=== PATIENT | female | born 1930 | race Caucasian/White ===

== ENCOUNTER → 2016-10-22 | Outpatient (CLI) | payer MEDICARE, OTHER ==
[2014-05-02 10:23] VITALS: BP 156/66
[~2016-10-22] MED LIST: CARDI-OMEGA1000 MG PO; CENTRUM SILVER1 TA1 PO; CHILDREN'S ASPI81 M1 PO; GLIPIZIDE5 MG PO; LISINOPRIL10 MG PO; LOVASTATIN20 MG PO; MELOXICAM7.5 MG PO; METFORMIN500 MG PO; NATURE'S BLEND400 I1 PO; PAIN RELIEVER500 M2 PO
== END ==
LOC: LAB 09:01
DX: Z00.00 Encounter for general adult medical examination without abnormal findings (principal); M25.511 Pain in right shoulder; E11.9 Type 2 diabetes mellitus without complications; I10 Essential (primary) hypertension; Z23 Encounter for immunization; R41.3 Other amnesia; M16.11 Unilateral primary osteoarthritis, right hip; K21.9 Gastro-esophageal reflux disease without esophagitis; E78.00 Pure hypercholesterolemia, unspecified

== ENCOUNTER → 2017-01-28 | Outpatient (CLI) | payer MEDICARE, OTHER ==
[2014-05-02 10:23] VITALS: BP 156/66
== END ==
LOC: LAB 10:54
DX: E11.9 Type 2 diabetes mellitus without complications (principal); E78.00 Pure hypercholesterolemia, unspecified; M79.659 Pain in unspecified thigh

== ENCOUNTER 2017-02-28 12:37 | Outpatient (RCR) | payer MEDICARE, OTHER ==
[2014-05-02 10:23] VITALS: BP 156/66
== END 2017-02-28 13:30 | disposition home or self-care (01) ==
LOC: PT 12:37
DX: M79.651 Pain in right thigh (principal)

== ENCOUNTER → 2017-04-21 | Outpatient (CLI) | payer MEDICARE, OTHER ==
[2014-05-02 10:23] VITALS: BP 156/66
== END ==
LOC: LAB 14:41
DX: E11.9 Type 2 diabetes mellitus without complications (principal); M25.511 Pain in right shoulder; I10 Essential (primary) hypertension

== ENCOUNTER → 2017-05-02 | Outpatient (CLI) | payer MEDICARE, OTHER ==
[2014-05-02 10:23] VITALS: BP 156/66
== END ==
LOC: RAD 11:58
DX: M51.84 Other intervertebral disc disorders, thoracic region (principal); M47.816 Spondylosis without myelopathy or radiculopathy, lumbar region

== ENCOUNTER → 2017-10-07 | Outpatient (CLI) | payer MEDICARE, OTHER ==
[2014-05-02 10:23] VITALS: BP 156/66
[2017-10-07 10:15] LABS: ALBUMIN 3.7 g/dL (3.5-5.0); BUN/CREATININE RATIO 8.1 (6.0-26.0); CALCIUM 9.8 mg/dL (8.4-10.2); POTASSIUM 4.1 mmol/L (3.6-5.0); TOTAL BILIRUBIN 0.5 mg/dL (0.2-1.3); TOTAL PROTEIN 6.9 g/dL (6.3-8.2)
== END ==
LOC: LAB 09:13
PROVIDERS: Family Medicine
DX: E11.9 Type 2 diabetes mellitus without complications (principal); E78.00 Pure hypercholesterolemia, unspecified

== ENCOUNTER → 2018-01-16 | Outpatient (CLI) | payer MEDICARE, OTHER ==
[2014-05-02 10:23] VITALS: BP 156/66
== END ==
LOC: LAB 11:59
DX: E11.9 Type 2 diabetes mellitus without complications (principal)

== ENCOUNTER → 2018-07-08 | Outpatient (CLI) | payer MEDICARE, OTHER ==
[2014-05-02 10:23] VITALS: BP 156/66
== END ==
LOC: LAB 09:58
DX: E11.9 Type 2 diabetes mellitus without complications (principal)

== ENCOUNTER 2018-11-30 14:00 | Outpatient (RCR) | payer MEDICARE, OTHER ==
[2014-05-02 10:23] VITALS: BP 156/66
== END 2018-11-30 14:30 | disposition still patient (30) ==
LOC: PT 14:00
DX: M47.16 Other spondylosis with myelopathy, lumbar region (principal); M16.11 Unilateral primary osteoarthritis, right hip

== ENCOUNTER 2019-01-08 10:12 | Emergency (ER) | payer MEDICARE, OTHER ==
[2019-01-08 11:06] LABS: EOS # 0.2 (0.04-0.40); HEMATOCRIT 31.7 % (37.0-47.0); HEMOGLOBIN 9.3 g/dL (12.5-16.0); LYMPH# 1.2 (1.50-4.00); MEAN CELL VOLUME 83 fl (78-100); MEAN CORPUSCULAR HEMOGLOBIN 24 pg (27-31); MEAN CORPUSCULAR HGB CONC 29 g/dL (33-37); MEAN PLATELET VOLUME 10.6 fl (7.4-10.4); MONO # 0.6 (0.20-0.80); NEU # 5.6 (1.40-6.50); PLATELET COUNT 299 K/mm3 (130-400); RED BLOOD COUNT 3.81 M/mm3 (4.10-5.30); RED CELL DISTRIBUTION WIDTH 15.9 % (11.5-14.5); WHITE BLOOD COUNT 7.6 K/mm3 (4.8-10.8)
[2019-01-08 11:12] LABS: ALBUMIN 3.6 g/dL (3.4-4.8); POTASSIUM 4.1 mmol/L (3.5-5.1)
[2019-01-08 11:14] LABS: CALCIUM 9.2 mg/dL (8.3-10.5)
[2019-01-08 11:15] LABS: TOTAL PROTEIN 6.2 g/dL (6.2-8.1)
[2019-01-08 11:17] LABS: PROTHROMBIN TIME 9.6 SECONDS (9.0-12.0); TOTAL BILIRUBIN 0.4 mg/dL (0.2-1.2)
[2019-01-08 11:19] LABS: D-DIMER 1.22 mg/L FEU (0.15-0.50)
[2019-01-08 11:27] LABS: TROPONIN-I 0.06 ng/mL (<0.030)
[2019-01-08 14:12] VITALS: BP 162/58
== END 2019-01-08 13:40 | disposition short-term general hospital (02) ==
LOC: ED 10:12
PROVIDERS: Nurse Practitioner Primary Care
DX: I21.4 Non-ST elevation (NSTEMI) myocardial infarction (principal); I50.9 Heart failure, unspecified; R91.8 Other nonspecific abnormal finding of lung field; E11.9 Type 2 diabetes mellitus without complications; I11.0 Hypertensive heart disease with heart failure; E78.5 Hyperlipidemia, unspecified; Z79.82 Long term (current) use of aspirin; Z79.84 Long term (current) use of oral hypoglycemic drugs
CPT/HCPCS: J1940; Q9967

== ENCOUNTER → 2019-01-24 | Outpatient (CLI) | payer MEDICARE, OTHER ==
[2019-01-08 14:12] VITALS: BP 162/58
[2019-01-24 10:53] LABS: POTASSIUM 4.5 mmol/L (3.5-5.1)
[2019-01-24 10:54] LABS: CALCIUM 9.8 mg/dL (8.3-10.5)
== END ==
LOC: LAB 10:31
PROVIDERS: Family Medicine
DX: I10 Essential (primary) hypertension (principal); E11.9 Type 2 diabetes mellitus without complications; I25.10 Atherosclerotic heart disease of native coronary artery without angina pectoris; E78.00 Pure hypercholesterolemia, unspecified

== ENCOUNTER → 2019-02-07 | Outpatient (CLI) | payer MEDICARE, OTHER ==
[2019-01-08 14:12] VITALS: BP 162/58
[2019-02-07 15:56] LABS: POTASSIUM 4.7 mmol/L (3.5-5.1)
[2019-02-07 15:57] LABS: CALCIUM 9.7 mg/dL (8.3-10.5)
== END ==
LOC: LAB 15:27
PROVIDERS: Family Medicine
DX: E11.9 Type 2 diabetes mellitus without complications (principal); I12.9 Hypertensive chronic kidney disease with stage 1 through stage 4 chronic kidney disease, or unspecified chronic kidney disease; I25.10 Atherosclerotic heart disease of native coronary artery without angina pectoris; R91.8 Other nonspecific abnormal finding of lung field

== ENCOUNTER → 2019-02-23 | Outpatient (CLI) | payer MEDICARE, OTHER ==
[2019-02-23 13:29] LABS: HEMOGLOBIN 10.8 g/dL (12.5-16.0); MEAN PLATELET VOLUME 9.7 fl (7.4-10.4); RED BLOOD COUNT 4.34 M/mm3 (4.10-5.30); RED CELL DISTRIBUTION WIDTH 17.9 % (11.5-14.5); WHITE BLOOD COUNT 9.8 K/mm3 (4.8-10.8)
== END ==
LOC: LAB 13:17
PROVIDERS: Family Medicine
DX: I25.10 Atherosclerotic heart disease of native coronary artery without angina pectoris (principal)

== ENCOUNTER → 2019-04-19 | Outpatient (CLI) | payer MEDICARE, OTHER | LOC: LAB 08:43 | DX: Z23 Encounter for immunization (principal); E11.9 Type 2 diabetes mellitus without complications; I10 Essential (primary) hypertension; R41.3 Other amnesia; I25.10 Atherosclerotic heart disease of native coronary artery without angina pectoris ==

== ENCOUNTER → 2019-05-24 | Outpatient (CLI) | payer MEDICARE, OTHER | LOC: RAD 11:33 | DX: M16.0 Bilateral primary osteoarthritis of hip (principal) ==

== ENCOUNTER → 2019-08-15 | Outpatient (CLI) | payer MEDICARE, OTHER | LOC: LAB 12:01 | DX: E11.9 Type 2 diabetes mellitus without complications (principal) ==

== ENCOUNTER 2019-09-03 14:30 | Outpatient (RCR) | payer MEDICARE, OTHER | END 2019-09-04 | LOC: PT | DX: M16.11 Unilateral primary osteoarthritis, right hip (principal); M79.604 Pain in right leg ==

== ENCOUNTER 2019-09-18 14:00 | Outpatient (RCR) | payer MEDICARE, OTHER | END 2019-09-18 14:30 | disposition still patient (30) | LOC: PT 14:00 | DX: M16.11 Unilateral primary osteoarthritis, right hip (principal) ==

== ENCOUNTER → 2019-11-08 | Outpatient (CLI) | payer MEDICARE, OTHER | LOC: LAB 14:04 | DX: E11.9 Type 2 diabetes mellitus without complications (principal) ==

== ENCOUNTER → 2021-02-25 | Outpatient (CLI) | payer MEDICARE, OTHER ==
[2021-02-25 11:42] LABS: HEMATOCRIT 43.4 % (37.0-47.0); HEMOGLOBIN 13.7 g/dL (12.5-16.0); MEAN PLATELET VOLUME 10.3 fl (7.4-10.4); RED BLOOD COUNT 4.8 M/mm3 (4.10-5.30); RED CELL DISTRIBUTION WIDTH 12.3 % (11.5-14.5); WHITE BLOOD COUNT 8.7 K/mm3 (4.8-10.8)
[2021-02-25 11:45] LABS: POTASSIUM 3.8 mmol/L (3.5-5.1)
[2021-02-25 11:46] LABS: ALBUMIN 4.1 g/dL (3.4-4.8)
[2021-02-25 11:47] LABS: CALCIUM 10.2 mg/dL (8.3-10.5)
[2021-02-25 11:48] LABS: TOTAL PROTEIN 7.6 g/dL (6.2-8.1)
[2021-02-25 11:50] LABS: TOTAL BILIRUBIN 0.6 mg/dL (0.2-1.2)
== END ==
LOC: LAB 10:52
PROVIDERS: Family Medicine
DX: E11.9 Type 2 diabetes mellitus without complications (principal); E78.00 Pure hypercholesterolemia, unspecified; I10 Essential (primary) hypertension

== ENCOUNTER → 2021-03-16 | Outpatient (CLI) | payer MEDICARE, OTHER ==
[2021-03-16 15:06] LABS: POTASSIUM 4.2 mmol/L (3.5-5.1)
== END ==
LOC: LAB 14:39
PROVIDERS: Family Medicine
DX: E11.9 Type 2 diabetes mellitus without complications (principal)

== ENCOUNTER → 2021-06-22 | Outpatient (CLI) | payer MEDICARE, OTHER ==
[2021-06-22 09:34] LABS: POTASSIUM 4.2 mmol/L (3.5-5.1)
[2021-06-22 09:35] LABS: CALCIUM 10.2 mg/dL (8.3-10.5)
== END ==
LOC: LAB 09:08
PROVIDERS: Family Medicine
DX: E11.9 Type 2 diabetes mellitus without complications (principal); I10 Essential (primary) hypertension; E78.00 Pure hypercholesterolemia, unspecified

== ENCOUNTER → 2021-09-09 | Outpatient (CLI) | payer MEDICARE, OTHER ==
[2021-09-09 13:20] LABS: POTASSIUM 4.4 mmol/L (3.5-5.1)
[2021-09-09 13:21] LABS: CALCIUM 9.3 mg/dL (8.3-10.5)
== END ==
LOC: LAB 12:07
PROVIDERS: Family Medicine
DX: I12.9 Hypertensive chronic kidney disease with stage 1 through stage 4 chronic kidney disease, or unspecified chronic kidney disease (principal); E11.22 Type 2 diabetes mellitus with diabetic chronic kidney disease; N18.4 Chronic kidney disease, stage 4 (severe)

== ENCOUNTER → 2021-10-23 | Outpatient (CLI) | payer MEDICARE, OTHER | LOC: LAB 11:23 | DX: R00.1 Bradycardia, unspecified (principal) ==

== ENCOUNTER 2022-01-02 15:54 | Emergency (ER) | payer MEDICARE, OTHER ==
[2022-01-02 17:02] LABS: HEMATOCRIT 36.5 % (37.0-47.0); HEMOGLOBIN 12.1 g/dL (12.5-16.0); MEAN CELL VOLUME 91 fl (78-100); MEAN CORPUSCULAR HEMOGLOBIN 30 pg (27-31); MEAN CORPUSCULAR HGB CONC 33 g/dL (33-37); MEAN PLATELET VOLUME 10.5 fl (7.4-10.4); PLATELET COUNT 172 K/mm3 (130-400); RED BLOOD COUNT 4.01 M/mm3 (4.10-5.30); RED CELL DISTRIBUTION WIDTH 13.1 % (11.5-14.5); WHITE BLOOD COUNT 5.5 K/mm3 (4.8-10.8)
[2022-01-02 17:06] LABS: ALBUMIN 3.7 g/dL (3.4-4.8)
[2022-01-02 17:07] LABS: POTASSIUM 4.2 mmol/L (3.5-5.1)
[2022-01-02 17:08] LABS: CALCIUM 9.2 mg/dL (8.3-10.5)
[2022-01-02 17:09] LABS: TOTAL PROTEIN 6.6 g/dL (6.2-8.1)
[2022-01-02 17:11] LABS: TOTAL BILIRUBIN 0.8 mg/dL (0.2-1.2)
[2022-01-02 17:20] LABS: URINE APPEARANCE CLOUDY; URINE BILIRUBIN NEGATIVE (NEGATIVE); URINE BLOOD TRACE (NEGATIVE); URINE COLOR YELLOW; URINE KETONE 1+ (NEGATIVE); URINE LEUKOCYTE ESTERASE TRACE (NEGATIVE); URINE NITRATE POSITIVE (NEGATIVE); URINE PROTEIN(semi-quant) TRACE (NEGATIVE); URINE UROBILINOGEN NORMAL (NORMAL)
[2022-01-02 17:24] LABS: LYMPHOCYTE 5 % (20-51); MONOCYTE 11 % (3-10); NEUTROPHILS 84 % (42-75)
[2022-01-02] MEDS ORDERED: CLOPIDOGREL PO (17:43)
[2022-01-02] MEDS ORDERED: CRESTOR20 MG PO (17:44)
[2022-01-02] MEDS ORDERED: JANUVIA 100MG100 MG PO (17:45)
[2022-01-02] MEDS ORDERED: ASPIRIN E.C. 8181 MG PO (17:46)
[2022-01-02] MEDS ORDERED: CEFDINIR300 MG PO (19:33)
[2022-01-02 21:41] VITALS: BP 111/48
== END 2022-01-02 21:41 | disposition home or self-care (01) ==
LOC: ED 15:54
PROVIDERS: Family Medicine
DX: N39.0 Urinary tract infection, site not specified (principal); E86.0 Dehydration; Z28.310 Unvaccinated for COVID-19
CPT/HCPCS: J0696; J1815; J7030

== ENCOUNTER → 2022-02-06 | Outpatient (CLI) | payer MEDICARE, OTHER ==
[~2022-02-06] MED LIST changes: +ASPIRIN E.C. 8181 MG PO; +CEFDINIR300 MG PO; +CLOPIDOGREL PO; +CRESTOR20 MG PO; +JANUVIA 100MG100 MG PO
[2022-02-06 17:44] LABS: PH-URINE 6.5 (5.0 - 8.0); URINE APPEARANCE CLEAR; URINE BILIRUBIN NEGATIVE (NEGATIVE); URINE BLOOD NEGATIVE (NEGATIVE); URINE COLOR YELLOW; URINE KETONE NEGATIVE (NEGATIVE); URINE LEUKOCYTE ESTERASE NEGATIVE (NEGATIVE); URINE NITRATE NEGATIVE (NEGATIVE); URINE PROTEIN(semi-quant) NEGATIVE (NEGATIVE); URINE UROBILINOGEN NORMAL (NORMAL); URINE WBC 0-1 /hpf (0-3)
== END ==
LOC: RAD 17:01
PROVIDERS: Nurse Practitioner Family
DX: K59.00 Constipation, unspecified (principal); R35.0 Frequency of micturition

== ENCOUNTER → 2022-02-10 | Outpatient (CLI) | payer MEDICARE, OTHER ==
[2022-02-10 15:45] LABS: ALBUMIN 3.8 g/dL (3.4-4.8); POTASSIUM 4.3 mmol/L (3.5-5.1)
[2022-02-10 15:47] LABS: CALCIUM 9.4 mg/dL (8.3-10.5)
[2022-02-10 15:48] LABS: TOTAL PROTEIN 7.1 g/dL (6.2-8.1)
[2022-02-10 15:50] LABS: TOTAL BILIRUBIN 0.7 mg/dL (0.2-1.2)
== END ==
LOC: LAB 15:20
PROVIDERS: Family Medicine
DX: E11.9 Type 2 diabetes mellitus without complications (principal)